=== PATIENT | male | born 1970 | race Caucasian/White ===

== ENCOUNTER 2016-09-03 23:41 | Emergency (ER) | payer OTHER ==
[~2016-09-03 23:41] MED LIST: LEVAQUIN500 MG PO
[2016-09-03 23:58] LABS: HEMOGLOBIN 13.6 gm/dl (14.0-17.5); RED BLOOD COUNT 4.32 M/UL (4.20-5.50); WHITE BLOOD COUNT 14.2 K/UL (4.5-11.0)
[2016-09-04 00:23] LABS: BUN/CREATININE RATIO 10 (0-10)
== END 2016-09-04 02:10 | disposition expired ==
LOC: ER1 23:41
PROVIDERS: Family Medicine
DX: J96.00 Acute respiratory failure, unspecified whether with hypoxia or hypercapnia (principal); F15.10 Other stimulant abuse, uncomplicated; M62.82 Rhabdomyolysis; E87.2 Acidosis; I46.9 Cardiac arrest, cause unspecified; Z88.0 Allergy status to penicillin
CPT/HCPCS: 31500; 36415; 36600; 70450; 71250; 72125; 80053; 80307; 82550; 82553; 82803; 83605; 83874; 84484; 85025; 92950; 93005; 94002; 96360; 99285; A4628; G0480; J0171